=== PATIENT | male | born 1945 | race Caucasian/White ===

== ENCOUNTER 2016-12-06 07:50 | Outpatient (CLI) | payer MEDICARE, OTHER ==
[2016-12-06 19:37] LABS: BASOPHILS % (AUTO) 1.2 %; EOSINOPHILS # (AUTO) 0.1 10^3/uL (0.0-0.7); EOSINOPHILS % (AUTO) 1.8 %; HCT - HEMATOCRIT 46.5 % (42.0-52.0); HGB - HEMOGLOBIN 15.4 g/dL (14.0-18.0); LYMPHOCYTES # (AUTO) 0.8 10^3/uL (1.5-3.5); LYMPHOCYTES % (AUTO) 22.4 %; MEAN CORPUSCULAR HEMOGLOBIN 33.7 pg (27.0-31.0); MEAN CORPUSCULAR HGB CONC 33.1 g/dL (32.0-36.0); MEAN CORPUSCULAR VOLUME 101.6 fL (80.0-94.0); MONOCYTES # (AUTO) 0.4 10^3/uL (0.0-1.0); MONOCYTES % (AUTO) 10.7 %; NEUTROPHILS # (AUTO) 2.4 10^3/uL (1.5-6.6); NEUTROPHILS % (AUTO) 63.9 %; NUCLEATED RED BLOOD CELLS AUTO 0.2 /100WBC; RED BLOOD COUNT 4.58 10^6/uL (4.70-6.10); RED CELL DISTRIBUTION WIDTH 13.4 % (12.0-15.0); UNCORRECTED WHITE BLOOD COUNT 3.7 x10^3/uL; WHITE BLOOD COUNT 3.7 x10^3/uL (4.8-10.8)
[2016-12-06 19:39] LABS: ALBUMIN/GLOBULIN RATIO 2.6 (1.0-2.2); BILIRUBIN,TOTAL 1.1 mg/dL (0.2-1.0); BUN - BLOOD UREA NITROGEN 20 mg/dL (6-20); CALCIUM 9.6 mg/dL (8.5-10.3); CARBON DIOXIDE - CO2 29 mmol/L (21-32); CHLORIDE 101 mmol/L (101-111); CHOL/HDL RATIO 2.5 (<5.0); CHOLESTEROL 191 mg/dL; CREATININE 0.9 mg/dL (0.6-1.2); GFR - MDRD 83 (>89); GLUCOSE 83 mg/dL (70-100); HDL CHOLESTEROL 77 mg/dL; LDL/HDL RATIO 1.4 (<3.6); POTASSIUM 4.2 mmol/L (3.5-5.0); SODIUM 138 mmol/L (135-145); TOTAL PROTEIN 6.4 g/dL (6.7-8.2); TRIGLYCERIDES 48 mg/dL; VLDL CHOLESTEROL 10 mg/dL
[2016-12-06 20:51] LABS: HEMOGLOBIN A1C 0.56 g/dL
== END 2016-12-06 07:51 | disposition home or self-care (01) ==
LOC: LAB.F 07:50
PROVIDERS: ATTEND Nurse Practitioner Family
DX: Z00.00 Encounter for general adult medical examination without abnormal findings (principal); E55.9 Vitamin D deficiency, unspecified; E78.5 Hyperlipidemia, unspecified; Z12.5 Encounter for screening for malignant neoplasm of prostate; Z83.3 Family history of diabetes mellitus
CPT/HCPCS: 36415; 80053; 80061; 82306; 83036; 85025; G0103; 84153

== ENCOUNTER 2018-11-19 14:42 | Outpatient (CLI) | payer MEDICARE, OTHER ==
[2018-11-19 17:48] LABS: THYROID STIMULATING HORMONE 1.69 uIU/mL (0.34-5.60)
[2018-11-19 17:50] LABS: FREE T4 (FREE THYROXINE) 1.05 ng/dL (0.58-1.64)
[2018-11-19 17:56] LABS: TOTAL T3 0.79 ng/mL (0.87-1.78)
[2018-11-23 16:16] LABS: T3 REVERSE 30 ng/dL (8-25)
== END 2018-11-19 14:43 | disposition home or self-care (01) ==
LOC: LAB.S 14:42
PROVIDERS: ATTEND Family Medicine
DX: E03.9 Hypothyroidism, unspecified (principal); R53.83 Other fatigue
CPT/HCPCS: 36415; 82626; 84439; 84443; 84480; 84481; 84482; 86376

== ENCOUNTER 2022-11-18 09:11 | Outpatient (CLI) | payer MEDICARE, OTHER ==
--- NOTE | 2022-11-18 13:21 | SLEEP CARE CONSULTATION ---
Information from patient questionnaire entered by Vijay Willis. I have reviewed and concur with the information entered by Vijay Willis. This document represents the service I personally performed and the decisions made by me, Sobeida Al MD, [facility]. History of Present Illness Service Date and Time: 11/18/2022 0911 Reason for Visit: New patient Chief Complaint: reports: Unrefreshed sleep, Fatigue, Frequent awakenings at night, Other (RESTLESS LEG) Date of Onset: 2YRS Usual bedtime: 930PM Time it takes to fall asleep: 10MIN Snores at night: Yes Observed to quit breathing while asleep: No Sleeps alone due to snoring: No Number of times waking at night: 4 Reasons for waking at night: reports: Bathroom Toss, Turn, or Twitch while sleeping: Yes Recalls having dreams: Yes Usually gets out of bed at: 530-630AM Feels refreshed in the morning: No Morning headache: No Sleepy or fatigued during the day: Yes Ever fallen asleep while driving: No Takes day naps: Yes Dreams during day naps: No Prior sleep studies: No Additional HPI information: I had the pleasure of seeing Mr. Tavarez along with his today regarding the possibility of him having a sleep disorder. As you know, he is a 77-year-old gentleman who complains of fatigue. He is also bothered by restless leg syndrome in the evening while in bed, but it does not keep him up at night. He experiences the discomfort about once a week only. The patient tells me that he normally goes to bed around 9:30 pm, and it takes him approximately 10 minutes to fall asleep. He takes trazodone. He has been told that he snores occasionally but he has woken himself up from snorting. He has never been observed to stop breathing in his sleep. His sleeps in a separate room. He sleeps mostly on his right side due to sinus drainage. He can recall waking up on the average of 4 times during the night. Most of the time he wakes up because of having to use the bathroom. There is a lot of tossing and turning in his sleep. No somniloquy (sleep talking) or somnambulism (sleep walking). Generally, he can recall having dreams. In the morning he usually gets up out of the bed around 5:30 6:30 a.m. occasionally not feeling refreshed nor rested. He usually does not have a morning headache. During the day he complains of feeling fatigued but not sleepy. His score on [place] Sleepiness Scale is 5 out of 24. He never has fallen asleep while driving nor has had any accident due to sleepiness. He usually takes a nap during the day on the average of twice a week. He denies having impaired concentration during the day. - Parasomnia Symptoms Ever been unable to move upon waking from sleep: No Walks in sleep: No Talks in sleep: No Ever acted out dreams in sleep: No Ever felt weak in the knees when startled or emotional: No Bothered by creepy, crawly, restless sensations in legs: Yes Problems with memory or concentration: Yes Subjective Initial [place] Sleepiness Scale score: 5 (11/18/22) Past Medical History Past Medical History: reports: Coronary Heart Disease Social History The patient's occupation is a [employer]. Patient is and lives in [place]. Have you smoked in the past 12 months: No Alcohol use: No Caffeine use: Yes Caffeine amount and frequency: 1 CUP DAILY Allergies and Home Medications Known drug allergies: No Drug allergies reviewed: Yes Home medication list reviewed: Yes Review of Systems Weight loss over past 5 years: 14 Cardiovascular: reports: other (PVC) Respiratory: denies: shortness of breath, wheeze, sputum production, chronic cough, other Gastrointestinal: denies: heartburn, difficulty swallowing, nausea, vomitting, diarrhea, abdominal pain, other Urinary: reports: frequency, urgency Neurological: denies: seizure Psychiatric: denies: Attention Deficit Hyperactivity, anxiety, depression, mood disorder, claustrophobia, other Ear/Nose/Throat: reports: nasal congestion, wisdom teeth removed Endocrine: reports: sluggishness, too hot or cold Musculoskeletal: reports: muscle pain or cramping Immunologic: reports: sneezing, allergies to food or environment Physical Exam Vital signs obtained and entered by: VIJAY Neal MA Blood Pressure: 128/70 (LEFT ARM) Cuff size: regular Heart Rate: 65 O2 Saturation: 98 Height: 5 ft 8.5 in Weight: 139 lb 9.6 oz Body Mass Index: 20.9 BMI Classification: Normal Neck circumference: 14.25 Mood/affect: Normal HEENT: No craniofacial malformation Nostrils: patent to airflow Turbinates: normal Septum: midline Mouth and throat: narrow oropharynx Soft palate: long Hard palate: normal Uvula: normal Uvula visualization: 50% Mallampati Class II Tongue: normal in size Tonsils: small Chin and jaw: normal size and position Neck: normal w/o lymphadenopathy or thyromegaly Heart: regular rate and rhythm Lungs: clear bilaterally Extremities: no edema or clubbing Neurologic: intact Impression and Plan IMPRESSION: 1. Fatigue, fort he past 2 years. He is slightly sleepy during the day. He reports improvement already from adjusting his food supplements. Because he wakes himself up occasionally from snorting, he may have sleep- related breathing disorder. Narrow oropharynx is a common predisposing factor for obstructive sleep apnea-hypopnea syndrome. For further evaluation, a sleep study will be ordered. Plan: 1. Schedule polysomnography and return in 1 to 2 weeks after the study to discuss results and initiate therapy. Follow up with Sleep Care in: 1-2 months Visit Type: In Office Time Spent with Patient (minutes): 15 Provider Statement: I spent 100% of the Face to Face Visit with the patient with greater than 50% spent counseling the patient and coordination of care.
[2022-11-18 13:28] VITALS: BP 128/70; O2SAT 98
== END 2022-11-18 09:12 | disposition home or self-care (01) ==
LOC: SC 09:11
PROVIDERS: ATTEND Internal Medicine Pulmonary Disease
DX: R53.83 Other fatigue (principal); G47.8 Other sleep disorders; G25.81 Restless legs syndrome; R06.83 Snoring
CPT/HCPCS: 99202; G0463; 99212

== ENCOUNTER 2023-02-14 19:21 | Outpatient (CLI) | payer MEDICARE | END 2023-02-14 19:22 | disposition home or self-care (01) | LOC: SC 19:21 | PROVIDERS: ATTEND Internal Medicine Pulmonary Disease | DX: G47.61 Periodic limb movement disorder (principal); I49.3 Ventricular premature depolarization | CPT/HCPCS: 95810 ==

== ENCOUNTER 2023-02-19 14:39 | Outpatient (CLI) | payer MEDICARE ==
--- NOTE | 2023-02-19 12:41 | SLEEP CARE CONSULTATION ---
Information from patient questionnaire entered by Vijay iWllis. I have reviewed and concur with the information entered by Vijay Willis. This document represents the service I personally performed and the decisions made by me, Sobeida Al MD, [facility]. History of Present Illness Service Date and Time: 02/19/2023 1020 Initial [place] Sleepiness Scale score: 5 (11/18/22) Current [place] Sleepiness Scale score: 3 (02/19/23) Additional HPI information: Mr. Tavarez was seen via video telemedicine ([facility]) for follow up of the sleep study he had on 02/14/2023. The polysomnography showed that the patient had reduced sleep efficiency due to several prolonged awakenings during the night. The sleep architecture was relatively normal considering the first-night effect. Respiratory monitoring showed no significant sleep disordered breathing (AHI = 0.2) or hypoxia ([place] oxygen saturation of 89%). The patient did not sleep supine during this study (supine AHI = 0.0; non-supine = 0.24). Snore was light in intensity. There was mild periodic leg movement of sleep not associated with sleep fragmentation. Cardiac rhythm was normal sinus rhythm with frequent premature atrial contractions. No abnormal behavior (parasomnia) observed during the night. The patient was informed of these findings. I explained to him that he has mild periodic leg movement of sleep that does not cause sleep disruption. He says he has restless leg sensation in the evenings but it resolves with hydration. Sleep Study - Results Type of Sleep Study: Polysomnography (COMPLETED 02/14/23) Prior sleep studies: No Allergies and Home Medications Drug allergies reviewed: Yes Home medication list reviewed: Yes Allergy and home medication list: Allergies No Known Drug Allergies Allergy (Verified 11/18/22 09:30) Review of Systems Review of systems same as previous: Yes Physical Exam Vital signs obtained and entered by: VIJAY Neal MA Height: 5 ft 8.5 in (PER PT) Weight: 130 lb (PER PT) Body Mass Index: 19.5 BMI Classification: Normal Impression and Plan IMPRESSION: 1. Fatigue, not related to sleep disrupting conditions. Further evaluation will be deferred to his primary care provider. 2. Periodic leg movement of sleep, mild, with occasional discomfort in the evenings. The patient says hydration is effective and will continue with it. PLAN: 1. Return to the sleep clinic on as needed basis. Follow up with Sleep Care in: as needed Visit Type: Telehealth Video Patient Location: Home Location of Provider: Office Patient agrees and consents to this telehealth visit type: Yes Patient agrees to have their insurance billed: Yes Provider Statement: I spent 100% of the Telehealth Video Call with the patient w ith greater than 50% spent counseling the patient and coordination of care.
== END 2023-02-19 14:40 | disposition home or self-care (01) ==
LOC: SC 14:39
PROVIDERS: ATTEND Internal Medicine Pulmonary Disease
DX: R53.83 Other fatigue (principal); G47.61 Periodic limb movement disorder

== ENCOUNTER 2023-03-03 00:47 | Outpatient (CLI) | payer MEDICARE | END 2023-03-03 00:48 | disposition critical access hospital (66) | LOC: EMS 00:47 | DX: I48.91 Unspecified atrial fibrillation (principal); I10 Essential (primary) hypertension | CPT/HCPCS: A0425; A0429 ==

== ENCOUNTER 2023-03-03 01:20 | Emergency (ER) | payer MEDICARE ==
[2023-03-03] MEDS ORDERED: diltiaZEM CD 120 MG CAPSULE PO STA (01:26)
[2023-03-03] MEDS ORDERED: SODIUM CHLORIDE 0.9% 1,000 ML IV STA (01:26)
[2023-03-03] MEDS ORDERED: diltiaZEM INJ 5 MG/ML VIAL IVP STA (01:26)
[2023-03-03 01:45] LABS: BASOPHILS % (AUTO) 0.5 %; EOSINOPHILS # (AUTO) 0.1 10^3/uL (0.0-0.7); EOSINOPHILS % (AUTO) 1.2 %; HCT - HEMATOCRIT 47.1 % (42.0-52.0); HGB - HEMOGLOBIN 15.4 g/dL (14.0-18.0); LYMPHOCYTES # (AUTO) 1.1 10^3/uL (1.5-3.5); LYMPHOCYTES % (AUTO) 13.9 %; MEAN CORPUSCULAR HEMOGLOBIN 33.3 pg (27.0-31.0); MEAN CORPUSCULAR HGB CONC 32.7 g/dL (32.0-36.0); MEAN CORPUSCULAR VOLUME 101.9 fL (80.0-94.0); MEAN PLATELET VOLUME 10.1 fL (7.4-11.4); MONOCYTES # (AUTO) 0.9 10^3/uL (0.0-1.0); MONOCYTES % (AUTO) 11.1 %; NEUTROPHILS % (AUTO) 73.1 %; PLT - PLATELET COUNT 203 10^3/uL (130-450); RED BLOOD COUNT 4.62 10^6/uL (4.70-6.10); RED CELL DISTRIBUTION WIDTH 12.4 % (12.0-15.0); WHITE BLOOD COUNT 8.2 x10^3/uL (4.8-10.8)
--- NOTE | 2023-03-03 01:55 | ED Physician Documentation ---
History of Present Illness - Stated complaint Stated Complaint: RHR - Chief complaint Chief Complaint: Cardiac - History obtained from History obtained from: Patient, EMS - Additonal information Additional information: The pt comes to the ED with CC of rapid heart rate that started around 2200. He states this has happened very occasionally previously, but Holter monitoring has never shown anything. He has no formal diagnosis. He sees both an allopathic and a naturopathic nursing specialist, as well as a naturopathic primary. He was recently started on simvastatin, with great improvement in his LDL. No h/o HTN diagnosis, though he is hypertensive en-route. No CP. No SOB. Pt was feeling fine all day yesterday. Medics report HR sustained in low 150's. PD PAST MEDICAL HISTORY - Past Medical History Past Medical History: Yes Cardiovascular: High cholesterol - Present Medications Home Medications: Ambulatory Orders Medication Instructions Recorded Confirmed Rosuvastatin Calcium [Crestor] See Rx Instructions .ROUTE .COMPLEX 02/19/23 03/03/23 - Allergies Allergies/Adverse Reactions: Allergies Allergy/AdvReac Type Severity Reaction Status Date / Time No Known Drug Allergies Allergy Verified 03/03/23 01:34 - Social History Does the pt smoke?: No Smoking Status: Never smoker Does the pt have substance abuse?: No - Immunizations Immunizations are current?: Yes - POLST Patient has POLST: No PD ED PE NORMAL - Vitals Vital signs reviewed: Yes - General General: Alert and oriented X 3, No acute distress - HEENT HEENT: Atraumatic, PERRL, EOMI, Moist mucous membranes - Neck Neck: Supple, no meningeal sign - Cardiac Cardiac: No murmur, Strong equal pulses, Other (Regular rate at 153-154 bpm) - Respiratory Respiratory: No respiratory distress, Clear bilaterally - Abdomen Abdomen: Soft, Non tender, Non distended - Derm Derm: Normal color, Warm and dry, No rash - Extremities Extremities: No deformity, No edema, No calf tenderness / cord - Neuro Neuro: Alert and oriented X 3 - Psych Psych: Normal mood, Normal affect Results - Vitals Vitals: Oxygen O2 Source Room air - EKG (time done) 0127 EKG releavant findings:: EKG personally interpreted by author of this note. Relevant findings are: Rate: Rate (enter#) Rhythm: Atrial flutter [place]: LAD, Other (Nonspecific intraventricular conduction delay with left axis deviation) Intervals: Wide QRS Ischemia: Other (No obvious ST changes.) Compare to prior EKG: Old EKG unavailable Computer interpretation: Agree with computer 0149 EKG releavant findings:: EKG personally interpreted by author of this note. Relevant findings are: Rate: Rate (enter#) (88) Rhythm: Atrial fibrillation [place]: RAD Compare to prior EKG: Changed from prior EKG (Not tachycardic, now in a. fib) Computer interpretation: Agree with computer 0203 EKG releavant findings:: EKG personally interpreted by author of this note. Relevant findings are: Rate: Rate (enter#) (63) Rhythm: NSR, LAE (possible) [place]: Normal QRS: Normal Ischemia: Non specific changes Compare to prior EKG: Changed from prior EKG (Now in NSR instead of a. fib) Computer interpretation: Agree with computer - Labs Labs: Laboratory Tests 03/03/23 03/03/23 01:37 01:37 WBC 8.2 RBC 4.62 L Hgb 15.4 Hct 47.1 MCV 101.9 H MCH 33.3 H MCHC 32.7 RDW 12.4 Plt Count 203 MPV 10.1 Neut # (Auto) 6.0 Lymph # (Auto) 1.1 L [place] # (Auto) 0.9 Eos # (Auto) 0.1 Baso # (Auto) 0.0 Absolute Nucleated RBC 0.00 Nucleated RBC % 0.0 Sodium 137 Potassium 3.7 Chloride 102 Carbon Dioxide 28 Anion Gap 7.0 BUN 24 H Creatinine 0.8 Estimated GFR (MDRD) 93 Glucose 101 Calcium 9.8 Total Bilirubin 0.4 AST 24 ALT 20 Alkaline Phosphatase 79 Total Protein 7.0 Albumin 4.5 Globulin 2.5 Albumin/Globulin Ratio 1.8 Lipase 22 PD Medical Decision Making - ED course Complexity details: reviewed old records, reviewed results, re-evaluated patient, considered differential, d/w patient, d/w family ED course: The pt was well-appearing, but with a significantly elevated HR. Given the reg ularity, I suspected atrial flutter. The pt was given IV Cardizem 25 mg, immediately followed by long-acting Cardizem 240 mg PO. Within minutes, both his HR and blood pressure had improved to normal, but he was now in a. fib. Labs were performed and unremarkable. The pt ultimately spontaneously converted to NSR. I have d/w pt that it is very important that he follow up with his nursing specialist about tonight's event, now that we have been able to document his rhythm. Given the rarity of his episodes, we will not start any medication tonight. We have discussed the usual indications for return. - Critical Care Time(min): 30 Comments: Critical care time was necessary, due to tachyarrhythmia with high probability of imminent decline and . Time Includes: Direct patient care, Review records, Reassess patient, Document care, Coordinate care, See progress note Data interpretation: Labs, Pulse ox, Prior EKG, Cardiac output, See progress note Departure - Departure Disposition: 01 Home, Self Care Clinical Impression: Paroxysmal atrial fibrillation with RVR, Paroxysmal atrial flutter Condition: Stable Instructions: ED Afib, ED Paroxysmal Atrial Flutter Comments: Your initial heart rhythm appeared to be atrial flutter, and your heart rate was steady in the 150s. Once we gave you the IV medicine, your heart rate slowed down but you remains in atrial fibrillation which is closely related to a flutter. You were given an oral dose of the same medication as we gave through the IV and this did help your heart rhythm to ultimately convert back to a normal sinus rhythm. At this point in time, both your heart rhythm and your blood pressure look great. It is important that you call your nursing specialist first thing in the morning to let them know that you were seen in the ED for atrial fibrillation/flutter with rapid ventricular response. Please also let them know that your blood pressure was running high while here. If you go back into a very fast heart rate at any point or develop chest pain or shortness of breath, you should return to the emergency department immediately. Otherwise, please plan to follow-up with your nursing specialist for further evaluation. Forms: PCP List Discharge Date/Time: 03/03/23 02:38
[2023-03-03 01:58] LABS: ALBUMIN 4.5 g/dL (3.2-5.5); ALBUMIN/GLOBULIN RATIO 1.8 (1.0-2.2); BILIRUBIN,TOTAL 0.4 mg/dL (0.2-1.0); CALCIUM 9.8 mg/dL (8.5-10.3); CREATININE 0.8 mg/dL (0.6-1.3); POTASSIUM 3.7 mmol/L (3.5-4.5)
[2023-03-03 02:19] VITALS: BP 134/72; O2SAT 97
== END 2023-03-03 02:38 | disposition home or self-care (01) ==
LOC: EDUNIT# → ED 01:20
DX: I48.0 Paroxysmal atrial fibrillation (principal); I48.92 Unspecified atrial flutter; E78.00 Pure hypercholesterolemia, unspecified; Z79.899 Other long term (current) drug therapy
CPT/HCPCS: 36415; 80053; 83690; 85025; 93005; 96374; 99284; 99291; A9270

== ENCOUNTER 2023-03-06 10:45 | Outpatient (CLI) | payer MEDICARE | END 2023-03-06 10:46 | disposition short-term general hospital (02) | LOC: EMS 10:45 | DX: I48.92 Unspecified atrial flutter (principal) | CPT/HCPCS: A0425; A0427 ==

== ENCOUNTER 2023-04-09 15:07 | Outpatient (CLI) | payer MEDICARE | END 2023-04-09 15:08 | disposition short-term general hospital (02) | LOC: EMS 15:07 | DX: I48.92 Unspecified atrial flutter (principal) | CPT/HCPCS: A0425; A0427 ==